=== PATIENT | male | born 1970 | race Caucasian/White ===

== ENCOUNTER 2017-08-13 13:58 | Emergency (ER) | payer MEDICAID ==
[~2017-08-13] VITALS: Ht 157.5 cm; Wt 68.0 kg
[2017-08-13 14:00] VITALS: Ht 157.5 cm; Wt 68.0 kg
[2017-08-13] MEDS ORDERED: ONDANSETRON 4 MG INJ IV STA (16:30)
[2017-08-13] MEDS ORDERED: LORAZEPAM 2 MG INJ IV STA (16:30)
[2017-08-13] MEDS ORDERED: SOD CHLORIDE 0.9% 1,000 ML IV STA (16:30)
--- NOTE | 2017-08-13 16:36 | ERD ---
ER Documentation Chief Complaint Chief Complaint ETOH WITHDRAWAL, HAS SHAKES , LAST ETOH INTAKE YESTERDAY HPI This is a 47-year-old male with a history of alcohol abuse who presents to the emergency room for feeling shaky. The patient states that he does drink every day, states that his last drink was this morning and he had one beer. He states that since then he has been shaking and feels like he is going into withdrawal. The patient denies any coingestions at this time, denies any chest pain but states he is feeling slightly weak. He came to the ER for evaluation of his symptoms and denies any aggravating factors at this time and states that alcohol does relieve his withdrawal symptoms. He denies any fevers or chills ROS All systems reviewed and are negative except as per history of present illness. Medications Home Meds No Active Prescriptions or Reported Meds Allergies Allergies: Coded Allergies: No Known Allergy (Unverified , 08/13/17) Physical Exam Vitals Vital Signs Date Time Temp Pulse Resp B/P Pulse Ox O2 Delivery O2 Flow Rate FiO2 08/13/17 17:18 98.1 86 22 172/108 100 08/13/17 14:00 98.1 129 18 209/109 99 Physical Exam INITIAL VITAL SIGNS: Reviewed by me GENERAL: The patient is well developed and appropriate for usual state of health in no apparent distress HEENT: Pupils equal, round, and reactive to light. EOMI. There is no scleral icterus. NECK: C-spine is soft and supple, there is no meningismus. There is no cervical lymphadenopathy. LUNGS: Clear to auscultation bilaterally. There are no rales, wheezes or rhonchi. HEART: Tachycardic, no murmurs, clicks, rubs or gallops. ABDOMEN: Soft, non-tender, non-distended. There are bowel sounds in all four quadrants. No rebound or guarding. EXTREMITIES: There is no peripheral cyanosis or edema. No focal swelling or erythema. NEUROLOGICAL: Resting tremor, the patient moves all four extremities with 5/5 strength. Cranial nerves II - XII are intact. Normal gait. Alert and oriented SKIN: There is no apparent rash or petechiae. HEME/LYMPHATIC: There is no evidence of excessive bruising or lymphedema. PSYCHIATRIC: The patient to be mildly anxious Result Diagram: 08/13/17 1645 08/13/17 1645 Results 24 hrs Laboratory Tests Test 08/13/17 16:45 White Blood Count 11.310^3/ul Red Blood Count 3.9010^6/ul Hemoglobin 13.4g/dl Hematocrit 37.9% Mean Corpuscular Volume 97.2fl Mean Corpuscular Hemoglobin 34.4pg Mean Corpuscular Hemoglobin Concent 35.4g/dl Red Cell Distribution Width 12.8% Platelet Count 42985^3/UL Mean Platelet Volume 9.9fl Neutrophils % 83.8% Lymphocytes % 9.8% Monocytes % 5.1% Eosinophils % 0.1% Basophils % 0.8% Nucleated Red Blood Cells % 0.0/100WBC Neutrophils # 9.410^3/ul Lymphocytes # 1.110^3/ul Monocytes # 0.610^3/ul Eosinophils # 0.010^3/ul Basophils # 0.110^3/ul Nucleated Red Blood Cells # 0.010^3/ul Sodium Level 136mmol/L Potassium Level 3.8mmol/L Chloride Level 96mmol/L Carbon Dioxide Level 25mmol/L Anion Gap 19 Blood Urea Nitrogen 2mg/dl Creatinine 0.66mg/dl Glucose Level 119mg/dl Calcium Level 9.4mg/dl Total Bilirubin 0.4mg/dl Direct Bilirubin 0.00mg/dl Indirect Bilirubin 0.4mg/dl Aspartate Amino Transf (AST/SGOT) 207IU/L Alanine Aminotransferase (ALT/SGPT) 138IU/L Alkaline Phosphatase 118IU/L Total Protein 8.3g/dl Albumin 4.9g/dl Globulin 3.40g/dl Albumin/Globulin Ratio 1.44 Salicylates Level 4.4mg/dl Acetaminophen Level < 10.0ug/ml Ethyl Alcohol Level 18.0mg/dl Current Medications Medications (Trade) Dose Ordered Sig/Juhi Route PRN Reason Start Time Stop Time Status Last Admin Dose Admin Sodium Chloride (NS) 1,000 ml @ 1,000 mls/hr Q1H STAT IV 08/13/17 16:30 08/13/17 17:29 DC 08/13/17 17:08 Lorazepam (Ativan) 2 mg ONCE STAT IV 08/13/17 16:30 08/13/17 16:32 DC 08/13/17 17:08 Ondansetron HCl (Zofran Inj) 4 mg ONCE STAT IV 08/13/17 16:30 08/13/17 16:32 DC 08/13/17 17:08 Procedures/MDM This 47-year-old male presents to the ER for evaluation of alcohol withdrawal. This patient does have an alcohol level of 18, however he does have signs of minor withdrawal including shaking. The patient is alert oriented to person place and time with no runs of delirium at this time. The patient was given 2 mg of Ativan, 1 L fluids. His chemistries are within normal at this time. When I reevaluated this patient his heart rate was 77 bpm, his blood pressure was still slightly elevated and he was given 0.1 mg of clonidine. This patient will be discharged at this time with a prescription for Ativan over the course of the next 3 days, and instructions to discontinue drinking. The patient does verbalize that he will stop drinking. Patient's blood pressure was elevated (>120/80) but appears stable without evidence of hypertension emergency or urgency. The patient was counseled about the risks of hypertension and urged to pursue outpatient monitoring and therapy within a week with their primary care physician. Departure Diagnosis: Primary Impression: Alcohol withdrawal Additional Impressions: Alcohol abuse Hypertension Condition: Stable WHITNEY BROWNLEE DO Aug 13, 2017 16:36
[2017-08-13 17:00] LABS: BASOPHIL # 0.1 10^3/ul (0.0-0.1); BASOPHILS % 0.8 % (0.0-2.0); EOSINOPHILS % 0.1 % (0.0-7.0); HEMATOCRIT 37.9 % (42.0-52.0); HEMOGLOBIN 13.4 g/dl (14.0-18.0); LYMPHOCYTES # 1.1 10^3/ul (0.8-2.9); LYMPHOCYTES % 9.8 % (15.0-51.0); MEAN CORPUSCULAR HEMOGLOBIN 34.4 pg (29.0-33.0); MEAN CORPUSCULAR HGB CONC 35.4 g/dl (32.0-37.0); MEAN CORPUSCULAR VOLUME 97.2 fl (82.0-101.0); MEAN PLATELET VOLUME 9.9 fl (7.4-10.4); MONOCYTE # 0.6 10^3/ul (0.3-0.9); MONOCYTES % 5.1 % (0.0-11.0); NEUTROPHIL # 9.4 10^3/ul (1.6-7.5); NEUTROPHILS % 83.8 % (39.0-77.0); PLATELET COUNT 155 10^3/UL (140-415); RED CELL DISTRIBUTION WIDTH 12.8 % (11.5-14.5); WHITE BLOOD COUNT 11.3 10^3/ul (4.8-10.8)
[2017-08-13 17:17] LABS: ALANINE AMINOTRANSFERASE 138 IU/L (13-69); ALBUMIN 4.9 g/dl (3.3-4.9); ALBUMIN/GLOBULIN RATIO 1.44; ALKALINE PHOSPHATASE 118 IU/L (42-121); ANION GAP 19 (8-16); ASPARTATE AMINO TRANSFERASE 207 IU/L (15-46); BILIRUBIN,INDIRECT 0.4 mg/dl (0-1.1); BILIRUBIN,TOTAL 0.4 mg/dl (0.2-1.3); BLOOD UREA NITROGEN 2 mg/dl (7-20); CALCIUM 9.4 mg/dl (8.4-10.2); CARBON DIOXIDE 25 mmol/L (21-31); CHLORIDE 96 mmol/L (97-110); CREATININE 0.66 mg/dl (0.61-1.24); GLUCOSE 119 mg/dl (70-220); POTASSIUM 3.8 mmol/L (3.5-5.1); SALICYLATE 4.4 mg/dl (5.0-30.0); SODIUM 136 mmol/L (135-144); TOTAL PROTEIN 8.3 g/dl (6.1-8.1)
[2017-08-13 17:18] VITALS: BP 172/108; PULSE 86; RESP 22; TEMP 98.1
[2017-08-13 17:19] LABS: ACETAMINOPHEN < 10.0 ug/ml (10.0-30.0)
[2017-08-13] MEDS ORDERED: LORA1TAB PO (17:58)
== END 2017-08-13 19:03 | disposition home or self-care (01) ==
LOC: E/R 13:58
DX: F10.239 Alcohol dependence with withdrawal, unspecified (principal); I10 Essential (primary) hypertension; R40.2252 Coma scale, best verbal response, oriented, at arrival to emergency department; R40.2142 Coma scale, eyes open, spontaneous, at arrival to emergency department; R40.2362 Coma scale, best motor response, obeys commands, at arrival to emergency department
CPT/HCPCS: 36415; 80053; 80306; 85025; 96374; 96375; J2060; J2405; J7030; Z7502; Z7610